=== PATIENT | male | born 1990 | race Caucasian/White ===

== ENCOUNTER 2021-02-21 19:52 | Emergency (ER) | payer SELFPAY ==
[2021-02-21] MEDS ORDERED: Penicillin V Potassium 250 MG Tab PO ONE (19:53)
[2021-02-21] MEDS ORDERED: Acetaminophen/Codeine 300-30 MG Tab PO ONE (19:53)
[2021-02-21] MEDS ORDERED: Ketorolac 30 MG/ML SDV IM ONE (20:11)
--- NOTE | 2021-02-21 20:12 | EDM.PDOC ---
ED HPI GENERAL MEDICAL PROBLEM - General Stated Complaint: TOOTH ACHE Time Seen by Provider: 02/21/21 20:08 Source of Information: Reports: Patient History Limitations: Reports: No Limitations - History of Present Illness INITIAL COMMENTS - FREE TEXT/NARRATIVE: Tyler complains of severe dental pain x 1 week.Has appointment with dentist but not until 2 weeks from now. Has tried Tylenol with no relief. No fever or sore throat. - Related Data Allergies Allergy/AdvReac Type Severity Reaction Status Date / Time azithromycin [From Zithromax] Allergy Rash Verified 02/21/21 20:04 ED ROS ENT - Review of Systems Review Of Systems: Comprehensive ROS is negative, except as noted in HPI. ED EXAM, ENT - Physical Exam Exam: See Below Exam Limited By: No Limitations General Appearance: Alert, WD/WN, No Apparent Distress Mouth/Throat: Dental Abcess, Dental Pain. No: Normal Teeth Head: Atraumatic Neck: Normal Inspection Respiratory/Chest: No Respiratory Distress Cardiovascular: Normal Peripheral Pulses Departure - Departure Time of Disposition: 20:10 Disposition: Home, Self-Care 01 Condition: Good Clinical Impression: Abscess, dental - Discharge Information - Problem List & Annotations (1) Pain, dental SNOMED Code(s): 14244201 Code(s): K08.89 - OTHER SPECIFIED DISORDERS OF TEETH AND SUPPORTING STRUCTURES Status: Acute - Problem List Review Problem List Initiated/Reviewed/Updated: Yes - Assessment/Plan Plan: Toradol 30 mg IM. Tylenol #3 for pain and Pen V K 500 mg TID.
== END 2021-02-21 20:31 | disposition home or self-care (01) ==
LOC: FB.ED 19:52
DX: K04.7 Periapical abscess without sinus (principal); Z88.1 Allergy status to other antibiotic agents
CPT/HCPCS: 96372; 99282; A9270; J1885